=== PATIENT | female | born 1995 | race Caucasian/White ===

== ENCOUNTER 2016-08-13 22:22 | Emergency (ER) | payer BC ==
[2016-08-14] MEDS ORDERED: Metoclopramide IV* 5 MG/ML 2 ML VIAL IV ONE (01:05)
[2016-08-14] MEDS ORDERED: NS 0.9% 1000 ML* 2,000 ML IV ONE (01:05)
[2016-08-14] MEDS ORDERED: diPHENhydraMINE IV* 50 MG/ML 1 ml VIAL (BENADRYL) IV ONE (01:06)
[2016-08-14] MEDS ORDERED: Butalb/Acetamin/Caff TAB* 1 TAB PO ONE (01:06)
[2016-08-14 01:50] LABS: Hematocrit 40 % (35-47); Hemoglobin 13.5 g/dl (12.0-16.0); Mean Corpuscular HGB Conc 33 g/dl (31-36); Mean Corpuscular Hemoglobin 28 pg (27-31); Mean Corpuscular Volume 83 fL (80-97); Mean Platelet Volume 10 um3 (7.4-10.4); Red Blood Count 4.87 10^6/ul (4.0-5.4); Red Cell Distribution Width 13 % (10.5-15); White Blood Count 10.7 10^3/ul (3.5-10.8)
[2016-08-14 02:01] LABS: ALT 13 U/L (7-52); AST 18 U/L (13-39); Albumin 4.2 g/dL (3.2-5.2); Alkaline Phosphatase 36 U/L (34-104); Anion Gap 8 mmol/L (2-11); BUN/Creatinine Ratio 22.7 (8-20); Blood Urea Nitrogen 17 mg/dL (6-24); CO2 Carbon Dioxide 25 mmol/L (22-32); Calcium 9.4 mg/dL (8.6-10.3); Chloride 103 mmol/L (101-111); EGFR African American 123.2 (>60); EGFR Non-African American 95.8 (>60); Globulin 3.2 g/dL (2-4); Glucose 116 mg/dL (70-100); Sodium 136 mmol/L (133-145); Total Protein 7.4 g/dL (6.4-8.9)
--- NOTE | 2016-08-14 02:50 | ED ---
Sammie Bains Alok, scribed for Skyler Cheney on 08/14/16 at 0124 . Headache - HPI Summary HPI Summary: 21 y/o female presents to the ED with CARTY and N/V since 1900. Her CARTY currently registers at a 7 out of 10 in [facility]. Pt has hx of CARTY and has been taking Amitriptyline everyday for the past 3 years. Pt states her medications are no longer providing relief and that her condition has been worsening. Pt states her current CARTY is accompanied by more nausea than her usual CARTY. Pt denies fever or stiffness. Pt denies CP, SOB, abd pain, or ear pain. - History Of Current Complaint Chief Complaint: EDHeadache Stated Complaint: MIGRAINE Time Seen by Provider: 08/14/16 00:57 Hx Obtained From: Patient Onset/Duration: Started hours ago, Still Present Initially Headache Was: Moderate Currently Pain Is: Current Pain Scale(0-10)= - 7, Moderate Allevating Factors: Nothing Associated Signs And Symptoms: Nausea - Allergies/Home Medications Allergies/Adverse Reactions: Allergies Allergy/AdvReac Type Severity Reaction Status Date / Time Penicillins [PCN] Allergy Hives Verified 08/13/16 22:25 PMH/Surg Hx/FS Hx/Imm Hx Neurological History: Reports: Hx Headaches Infectious Disease History: No Infectious Disease History: Denies: Traveled Outside the [place] in Last 30 Days - Family History Known Family History: Negative: Hypertension - Social History Lives: With Family Review of Systems Negative: Fever Negative: Ear Ache Negative: Chest Pain Negative: Shortness Of Breath Positive: Nausea. Negative: Abdominal Pain Negative: Other - stiffness Positive: Headache All Other Systems Reviewed And Are Negative: Yes Physical Exam Triage Information Reviewed: Yes Vital Signs On Initial Exam: Initial Vitals Temp Pulse Resp BP Pulse Ox 97.0 F 104 20 156/96 100 08/13/16 22:25 08/13/16 22:25 08/13/16 22:25 08/13/16 22:25 08/13/16 22:25 Vital Signs Reviewed: Yes Appearance: Positive: Well-Appearing, No Pain Distress Skin: Positive: Warm, Skin Color Reflects Adequate Perfusion, Dry Head/Face: Positive: Normal Head/Face Inspection Eyes: Positive: EOMI, DAMIAN ENT: Positive: Normal ENT inspection Neck: Positive: Supple, Nontender Respiratory/Lung Sounds: Positive: Clear to Auscultation, Breath Sounds Present Cardiovascular: Positive: RRR, Pulses are Symmetrical in both Upper and Lower Extremities Abdomen Description: Positive: Nontender, Soft Bowel Sounds: Positive: Present Musculoskeletal: Positive: Normal, Strength/ROM Intact Neurological: Positive: Normal, Sensory/Motor Intact, Alert, Oriented to Person Place, Time Diagnostics - Vital Signs Vital Signs Temp Pulse Resp BP Pulse Ox 08/13/16 22:25 97.0 F 104 20 156/96 100 - Laboratory Result Diagrams: 08/14/16 01:15 08/14/16 01:15 Lab Statement: Any lab studies that have been ordered have been reviewed, and results considered in the medical decision making process. Headache Course/Dx - Course Course Of Treatment: Pt refused CT and feels better. Will return home with recommendation to FU with PCP in three days. - Diagnoses Provider Diagnoses: Migraine headache Discharge - Discharge Plan Condition: Stable Disposition: HOME Prescriptions: Butalb/Acetamin/Caff TAB* [Fioricet TAB*] 1 tab PO Q6H PRN #20 tab MDD 3 PRN Reason: Pain Patient Education Materials: Acute Headache (ED) Referrals: No Primary Care Phys,NOPCP [Primary Care Provider] - [facility] [place] [facility] REFERRAL [Outside] Additional Instructions: Please follow up with your primary care provider in the next three days. The documentation as recorded by the Sammie collins Alok accurately reflects the service I personally performed and the decisions made by , Skyler Cheney.
[2016-08-14 03:06] VITALS: BP 117/80
== END 2016-08-14 03:06 | disposition home or self-care (01) ==
LOC: ED 22:22
DX: G43.909 Migraine, unspecified, not intractable, without status migrainosus (principal); Z32.02 Encounter for pregnancy test, result negative; Z88.0 Allergy status to penicillin
CPT/HCPCS: 36415; 80053; 84702; 85025; 96361; 96374; 96375; 99283; A9270-GY; J1200

== ENCOUNTER 2017-02-27 22:46 | Emergency (ER) | payer BC ==
[2017-02-27 23:54] VITALS: BP 135/90
== END 2017-02-27 23:55 | disposition left against medical advice (07) ==
LOC: ED 22:46
DX: G43.909 Migraine, unspecified, not intractable, without status migrainosus (principal); Z53.20 Procedure and treatment not carried out because of patient's decision for unspecified reasons
CPT/HCPCS: 99282